=== PATIENT | female | born 1960 | race African-American/Black ===

== ENCOUNTER 2018-05-27 11:42 | Day surgery (SDC) | payer BC ==
[2018-05-27] MEDS: BACITRACIN/POLYMYXIN 28.35 GM OINT TOP
[~2018-05-27 11:42] MED LIST: CEFAZOLIN 2 GM/50 ML (PMX) 50 ML (FOR WT < 120 KG) IVPB
[2018-05-27] MEDS ORDERED: DIPHENHYDRAMINE 50 MG INJ IV (13:00)
[2018-05-27] MEDS ORDERED: ONDANSETRON 4 MG INJ IV (13:00)
[2018-05-27] MEDS ORDERED: PROCHLORPERAZINE 10 MG INJ IV (13:00)
[2018-05-27] MEDS ORDERED: HYDROmorphONE 1 MG/5 ML IV SYRINGE IV ×3 (13:00)
[2018-05-27] MEDS ORDERED: MEPERIDINE 25 MG INJ IV (13:00)
[2018-05-27] MEDS ORDERED: OXYCODONE/ACETAMINOPHEN (5/325) TAB PO (13:00)
[2018-05-27] MEDS ORDERED: FENTAnyl 50 MCG/ML VIAL IV ×3 (13:00)
[2018-05-27] MEDS ORDERED: FENTAnyl 50 MCG/ML VIAL (13:14)
[2018-05-27] MEDS ORDERED: PROPOFOL 20 ML ×3 (13:14→14:26)
[2018-05-27] MEDS ORDERED: MIDAZOLAM 1 MG/ML 2 ML INJ (13:14)
[2018-05-27] MEDS ORDERED: LIDOCAINE 2% (SDV) 5 ML INJ (13:14)
[2018-05-27] MEDS: LIDOCAINE 1% (STERILE-PAK) 30 ML INJ (13:33)
[2018-05-27] MEDS: BUPIVACAINE 0.25% (MPF) 30 ML INJ (13:33)
[2018-05-27] MEDS ORDERED: FAMOTIDINE 20 MG INJ (13:42)
[2018-05-27] MEDS ORDERED: ONDANSETRON 4 MG INJ (13:42)
[2018-05-27] MEDS: hydrALAzine 20 MG INJ IV ×2 (14:53→15:05)
[2018-05-27] MEDS ORDERED: LABETALOL HCL 20MG INJ IV (15:00)
== END 2018-05-27 16:45 | disposition home or self-care (01) ==
LOC: SDS 11:42
DX: S62.625A Displaced fracture of middle phalanx of left ring finger, initial encounter for closed fracture (principal); X58.XXXA Exposure to other specified factors, initial encounter; Y93.89 Activity, other specified; Y92.89 Other specified places as the place of occurrence of the external cause; Y99.8 Other external cause status
CPT/HCPCS: 26727; 73130-LT